=== PATIENT | female | born 1965 | race Caucasian/White ===

== ENCOUNTER 2020-01-24 10:39 | Outpatient (CLI) | payer BC ==
[2020-01-29] MEDS ORDERED: GABA600T12 PO ×2 (07:33)
[2020-01-29] MEDS ORDERED: ATOR10TA PO (07:33)
[2020-01-29] MEDS ORDERED: PARO40TA4 PO (07:33)
[2020-01-29] MEDS ORDERED: BUSP10TA35 PO (07:33)
[2020-01-29] MEDS ORDERED: FLEXERIL PO (07:33)
[2020-01-29] MEDS ORDERED: LISI10TA5 PO (07:33)
[2020-01-31] MEDS ORDERED: AZIT500T2 PO (14:01)
== END 2020-01-24 23:59 | disposition home or self-care (01) ==
LOC: LAB 10:39
PROVIDERS: ATTEND Specialist
DX: Z01.812 Encounter for preprocedural laboratory examination (principal); Z20.828 Contact with and (suspected) exposure to other viral communicable diseases
CPT/HCPCS: 87426; C9803; U0003